=== PATIENT | female | born 1960 | race Caucasian/White ===

== ENCOUNTER 2017-06-06 10:50 | Emergency (ER) | payer OTHER ==
[~2017-06-06] VITALS: Ht 160 cm; Wt 62.5 kg
[~2017-06-06 10:50] MED LIST: AMLO-147 PO; ASPI-664 PO; GEMF600T60 PO; HYDR12.58 PO; MELO-210 PO
[2017-06-06 10:54] VITALS: Ht 160 cm; Wt 62.5 kg
[2017-06-06] MEDS ORDERED: ASPIRIN 325 MG TAB PO STA (11:40)
[2017-06-06] MEDS ORDERED: NITROGLYCERIN 2% 1 GM OINT PKT TD STA (11:40)
[2017-06-06] MEDS ORDERED: KETOROLAC 30 MG INJ IV STA (11:48)
[2017-06-06] MEDS ORDERED: morphine 4 MG/ML VIAL IV STA (11:48)
[2017-06-06] MEDS ORDERED: ONDANSETRON 4 MG INJ IV STA (11:48)
[2017-06-06 12:09] LABS: BASOPHIL # 0.1 10^3/ul (0.0-0.1); BASOPHILS % 0.8 % (0.0-2.0); EOSINOPHILS % 0.4 % (0.0-7.0); HEMATOCRIT 48.7 % (37.0-47.0); HEMOGLOBIN 17.9 g/dl (12.0-16.0); LYMPHOCYTES # 2.2 10^3/ul (0.8-2.9); MEAN CORPUSCULAR HEMOGLOBIN 32.3 pg (29.0-33.0); MEAN CORPUSCULAR HGB CONC 36.8 g/dl (32.0-37.0); MEAN CORPUSCULAR VOLUME 87.7 fl (82.0-101.0); MEAN PLATELET VOLUME 9.6 fl (7.4-10.4); MONOCYTE # 0.5 10^3/ul (0.3-0.9); MONOCYTES % 7.4 % (0.0-11.0); NEUTROPHIL # 4.3 10^3/ul (1.6-7.5); PLATELET COUNT 220 10^3/UL (140-415); RED BLOOD COUNT 5.55 10^6/ul (4.20-5.40); RED CELL DISTRIBUTION WIDTH 12.2 % (11.5-14.5); WHITE BLOOD COUNT 7.1 10^3/ul (4.8-10.8)
[2017-06-06 12:35] LABS: ALANINE AMINOTRANSFERASE 66 IU/L (13-69); ALBUMIN 4.9 g/dl (3.3-4.9); ALBUMIN/GLOBULIN RATIO 1.28; ALKALINE PHOSPHATASE 99 IU/L (42-121); ANION GAP 19 (8-16); ASPARTATE AMINO TRANSFERASE 71 IU/L (15-46); BILIRUBIN,INDIRECT 1.4 mg/dl (0-1.1); BILIRUBIN,TOTAL 1.4 mg/dl (0.2-1.3); BLOOD UREA NITROGEN 8 mg/dl (7-20); CALCIUM 9.6 mg/dl (8.4-10.2); CARBON DIOXIDE 28 mmol/L (21-31); CHLORIDE 95 mmol/L (97-110); CREATINE KINASE 168 IU/L (23-200); CREATININE 0.55 mg/dl (0.44-1.00); GLUCOSE 126 mg/dl (70-220); POTASSIUM 3.4 mmol/L (3.5-5.1); SODIUM 139 mmol/L (135-144); TOTAL PROTEIN 8.7 g/dl (6.1-8.1)
[2017-06-06 12:38] LABS: INR 1.03; PROTIME 13.5 Sec (12.2-14.2); PT RATIO 1.1
[2017-06-06 12:39] LABS: PARTIAL THROMBOPLASTIN TIME 28.1 Sec (25.0-35.0)
[2017-06-06 12:47] LABS: B-TYPE NATRIURETIC PEPTIDE 47 PG/ML (0-125); CK-MB 2.33 ng/ml (0.0-2.4)
[2017-06-06 12:50] LABS: TROPONIN-I < 0.012 ng/ml (0.00-0.12)
--- NOTE | 2017-06-06 13:18 | RADRPT ---
PROCEDURE: Shoulder x-ray CLINICAL INDICATION: Pain TECHNIQUE: Right shoulder 3 views COMPARISON: None FINDINGS: 3 views of the right shoulder demonstrate no displaced fracture. The humeral head articulates anato mically with the glenoid fossa. The acromioclavicular articulation is within normal limits. Bones are normally mineralized. Soft tissues are unremarkable. IMPRESSION: No acute fracture dislocation No significant degenerate change RPTAT: HH .Casey Cabezas MD, Date Time Electronically viewed and signed by .Casey Cabezas MD, on 06/06/2017 13:18 .W/
[2017-06-06] MEDS ORDERED: HYDR-906 PO (14:02)
[2017-06-06] MEDS ORDERED: NAPR-260 PO (14:02)
[2017-06-06 14:22] VITALS: BP 179/88; PULSE 114; RESP 18; TEMP 98.6
--- NOTE | 2017-06-23 17:49 | ERD ---
ER Documentation Chief Complaint Date/Time DATE: 06/23/17 TIME: 17:22 Chief Complaint chest pain and right shoulder pain x 1 week, sent by pmd for radha MCCARTY A pleasant 57-year-old female that presents to the emergency department complaining of right shoulder pain has been present for the past 2 weeks. The patient states that it radiates to her right chest wall. The pain is a dull achy sensation is exacerbated whenever she moves her right upper extremity. The pain is 8 out of 10 in intensity and progressively worsened over the past 2 weeks which prompted her to come to the emergency department today to be further evaluated. Contrary to the triage note the patient states that there is no chest pressure that radiates to the neck arm back or jaw on the left side. She did state that the pain moved from the right shoulder to the right chest wall one week ago. She has had no fevers or shaking or chills. She denies any shortness of breath at rest or exertion. She did not take any analgesic medication prior to arrival. She denies any numbness or tingling of her right or left upper extremity and no weakness of her right upper extremity. She is right-handed dominant. She denies any remote or recent trauma to her right shoulder. Not take any analgesic medication prior to arrival. Was seen at her primary care physician's office for evaluation of the right shoulder pain and had an EKG that they were concerned could show acute ischemia and therefore she was sent to the emergency department to be further evaluated. ROS All systems reviewed and are negative except as per history of present illness. Medications Home Meds Active Scripts Hydrocodone/Acetaminophen (Corinne 5-325 Tablet) 1 Each Tablet, 1 TAB PO Q6H Y for PAIN, #20 TAB Prov:CHICHO GREGORY 06/06/17 Naproxen* (Naprosyn*) 500 Mg Tablet, 500 MG PO BID Y for PAIN AND/OR INFLAMMATION, #30 TAB Prov:CHICHO GREGORY 06/06/17 Reported Medications Meloxicam* (Mobic*) 15 Mg Tablet, 15 MG PO DAILY, TAB 07/24/15 Hydrochlorothiazide* (Hydrochlorothiazide*) 12.5 Mg Tablet, 12.5 MG PO DAILY, TAB 07/24/15 Amlodipine Besylate* (Amlodipine Besylate*) 10 Mg Tablet, 10 MG PO DAILY, TAB 07/24/15 Aspirin* (Aspirin* (EC)) 81 Mg Tablet.dr, 81 MG PO DAILY, TAB 07/24/15 Gemfibrozil* (Gemfibrozil*) 600 Mg Tablet, 600 MG PO BID, TAB 07/24/15 Allergies Allergies: Coded Allergies: No Known Allergy (Unverified , 07/24/15) PMhx/Soc History of Surgery: No Anesthesia Reaction: No Hx Neurological Disorder: No Hx Cardiac Disorders: Yes (HTN, hyperlipidemia) Hx Psychiatric Problems: No Hx Miscellaneous Medical Probl: No Hx Alcohol Use: No Hx Substance Use: No Hx Tobacco Use: No Smoking Status: Never smoker Physical Exam Physical Exam Constitutional:Well-developed. Well-nourished. HEENT:Normocephalic. Atraumatic.Pupils were equal round reactive to light. Moist mucous membranes.No tonsillar exudates. Neck: No nuchal rigidity. No lymphadenopathy. No posterior cervical spine tenderness or step-offs. Respiratory: Not using accessory muscles of respiration.Lungs were clear to auscultation bilaterally. No rhonchi. No rales. No wheezing. Cardiovascular: Regular rate regular rhythm.No murmurs. No rubs were appreciated.S1, S2 normal. Distal pulses are palpable 2+ bilaterally. GI: Abdomen was soft. Nontender. Non Distended. No pulsatile abdominal masses or bruits. No rebound. No guarding. Bowel sounds were present and normal. Muscle skeletal: Patient had tenderness over the right AC joint. Patient was able to AB duct the right upper extremity past 90 but this exacerbated pain. Normal lie to the right humeral head. Compartments are soft at the bilateral upper extremities. Flexion extension of the bilateral elbows is grossly normal. Sensation intact of the radial ulnar and median nerve distribution as well as axillary nerve distribution of the bilateral upper extremities. Lower extremities were of equal length and symmetrical with no internal/external rotation and no asymmetrical tenderness or soft tissue swelling. Reducible right chest wall tenderness with no crepitus no ecchymosis no flail chest and no tenderness over the left chest wall. Skin: No petechia, no purpura. No lesions on the palms or the soles of the feet. No maculopapular rash. NEURO: Patient was alert, awake, orientated x3.No facial droop. Gait observed and normal with no ataxia.Speech had regular rate and rhythm. No focal neurological deficits. Results 24 hrs Laboratory Tests Test 06/06/17 11:52 White Blood Count 7.110^3/ul Red Blood Count 5.5510^6/ul Hemoglobin 17.9g/dl Hematocrit 48.7% Mean Corpuscular Volume 87.7fl Mean Corpuscular Hemoglobin 32.3pg Mean Corpuscular Hemoglobin Concent 36.8g/dl Red Cell Distribution Width 12.2% Platelet Count 87709^3/UL Mean Platelet Volume 9.6fl Neutrophils % 60.0% Lymphocytes % 31.0% Monocytes % 7.4% Eosinophils % 0.4% Basophils % 0.8% Nucleated Red Blood Cells % 0.0/100WBC Neutrophils # 4.310^3/ul Lymphocytes # 2.210^3/ul Monocytes # 0.510^3/ul Eosinophils # 0.010^3/ul Basophils # 0.110^3/ul Nucleated Red Blood Cells # 0.010^3/ul Prothrombin Time 13.5Sec Prothrombin Time Ratio 1.1 INR International Normalized Ratio 1.03 Activated Partial Thromboplast Time 28.1Sec Sodium Level 139mmol/L Potassium Level 3.4mmol/L Chloride Level 95mmol/L Carbon Dioxide Level 28mmol/L Anion Gap 19 Blood Urea Nitrogen 8mg/dl Creatinine 0.55mg/dl Glucose Level 126mg/dl Calcium Level 9.6mg/dl Total Bilirubin 1.4mg/dl Direct Bilirubin 0.00mg/dl Indirect Bilirubin 1.4mg/dl Aspartate Amino Transf (AST/SGOT) 71IU/L Alanine Aminotransferase (ALT/SGPT) 66IU/L Alkaline Phosphatase 99IU/L Creatine Kinase 168IU/L Creatine Kinase Index 1.4 Creatinine Kinase MB (Mass) 2.33ng/ml Troponin I < 0.012ng/ml B-Type Natriuretic Peptide 47PG/ML Total Protein 8.7g/dl Albumin 4.9g/dl Globulin 3.80g/dl Albumin/Globulin Ratio 1.28 Current Medications Medications (Trade) Dose Ordered Sig/Lydia Route PRN Reason Start Time Stop Time Status Last Admin Dose Admin Aspirin (Aspirin) 325 mg ONCE STAT PO 06/06/17 11:40 06/06/17 11:41 Cancel Nitroglycerin (Nitroglycerin 2% Oint) 1 inch ONCE STAT TD 06/06/17 11:40 06/06/17 11:41 Cancel Ketorolac Tromethamine (Toradol) 30 mg ONCE STAT IV 06/06/17 11:48 06/06/17 11:51 DC 06/06/17 11:58 Morphine Sulfate (morphine) 4 mg ONCE STAT IV 06/06/17 11:48 06/06/17 11:51 DC 06/06/17 11:58 Ondansetron HCl (Zofran Inj) 4 mg ONCE STAT IV 06/06/17 11:48 06/06/17 11:51 DC 06/06/17 11:58 Procedures/MDM This is a 57-year-old female presents to the emergency department with right shoulder pain. Radiographic imaging of the right shoulder old and reviewed by myself showed no acute fractures or dislocations. When the patient initially arrived she had been given aspirin and nitroglycerin as she stated she had an outpatient EKG that showed acute changes. This was reviewed by myself and there is no evidence of acute ischemic changes. I did obtain ancillary laboratory work and there is no evidence of an elevated troponin, congestive heart failure or electrolyte abnormalities. I did feel the patient's pain was likely muscle skeletal in origin and would benefit from an outpatient MRI. She states she felt comfortable being discharged home and her pain had improved after IV morphine and Zofran. 12 Lead EKG tracing ordered and reviewed by myself showed: Normal sinus rhythm of 65 bpm and no arrhythmia. UT interval normal. QRS duration normal. No ST segment elevation No ST segment depression. No changes consistent with acute ischemia. The patient was discharged home in fair condition. They were instructed to return to the emergency department at any time if there was any worsening of their condition. The patient stated they would follow up with their PCP in the next 24-48 hours to initiate a suitable medication regimen under the care of their PCP as well as to allow their PCP to monitor any drug reactions. The patient was discharged home with prescriptions after they gave informed consent to the new medication. They were also fully informed by myself on the adverse effects and adverse drug interactions in order to provide adequate safeguards to prevent possible adverse reactions to medications. Departure Diagnosis: Primary Impression: Shoulder sprain Encounter type: initial encounter Shoulder sprain type: unspecified sprain Laterality: right Qualified Code: S43.401A - Sprain of right shoulder, unspecified shoulder sprain type, initial encounter Condition: Fair Patient Instructions: The Shoulder Joint, Shoulder Exercises: Internal Rotation , Shoulder Exercises: External Rotation, Shoulder Sprain CHICHO GREGORY Jun 23, 2017 17:32
== END 2017-06-06 14:22 | disposition home or self-care (01) ==
LOC: E/R 10:50
DX: S43.401A Unspecified sprain of right shoulder joint, initial encounter (principal); I10 Essential (primary) hypertension; X58.XXXA Exposure to other specified factors, initial encounter; Y92.9 Unspecified place or not applicable; Z79.82 Long term (current) use of aspirin
CPT/HCPCS: 73030; 80053; 82550; 82553; 83880; 84484; 85025; 85610; 85730; 93005; J1885; J2270; J2405

== ENCOUNTER 2019-06-02 09:23 | Emergency (ER) | payer OTHER, BC ==
[~2019-06-02] VITALS: Ht 154.9 cm; Wt 59.1 kg
[~2019-06-02 09:23] MED LIST changes: +ASPI-1046 PO; -ASPI-664 PO; +AZIT250T PO; +D-ME473S2 PO; -GEMF600T60 PO; +GEMF600T8 PO; +HYDR-4011 PO; +IBUP-1542 PO; -MELO-210 PO; +MELO15TA30 PO; +NAPR-985 PO
[2019-06-02 09:46] VITALS: BP 160/111; PULSE 112; RESP 18; Ht 154.9 cm; Wt 59.1 kg
== END 2019-06-02 11:46 | disposition home or self-care (01) ==
LOC: FTE 09:23
DX: H93.93 Unspecified disorder of ear, bilateral (principal); I10 Essential (primary) hypertension; Z79.82 Long term (current) use of aspirin
CPT/HCPCS: 99283